=== PATIENT | male | born 1970 | race African-American/Black ===

== ENCOUNTER 2019-10-06 17:09 | Emergency (ER) | payer BC, OTHER ==
--- NOTE | 2019-10-06 17:35 | EDM.PDOC ---
ED HPI GENERAL MEDICAL PROBLEM - General Chief Complaint: Abdominal Pain Stated Complaint: ABD PAIN/BODY ACHES/HEADACHE Time Seen by Provider: 10/06/19 17:25 - History of Present Illness INITIAL COMMENTS - FREE TEXT/NARRATIVE: 49-year-old male presents the emergency room with abdominal pain and generalized aches and pains. Several days ago the patient developed some discomfort in his abdomen after eating pizza this was further aggravated by eating pepperoni from a pepperoni stick. Patient describes his pain is been in the periumbilical area. He has had some nausea no real vomiting. Patient also is having a lot of problems with constipation. The patient is voiding normally no burning or frequency. Patient has no prior history of any abdominal surgeries. He thought he had a fever when he came in but he does not. Abdomen Pain Score (Numeric/FACES): 3 - Related Data Allergies Allergy/AdvReac Type Severity Reaction Status Date / Time No Known Allergies Allergy Verified 10/06/19 17:20 Home Meds: Home Meds . [No Known Home Meds] 10/06/19 [History] Past Medical History - Past Health History Medical/Surgical History: Denies Medical/Surgical History Social & Family History - Caffeine Use Caffeine Use: Reports: Soda ED ROS GENERAL - Review of Systems Review Of Systems: See Below Constitutional: Reports: Other (He has felt warm) HEENT: Reports: No Symptoms Respiratory: Reports: No Symptoms Cardiovascular: Reports: No Symptoms GI/Abdominal: Reports: Abdominal Pain, Constipation, Nausea. Denies: Diarrhea, Vomiting : Reports: No Symptoms Musculoskeletal: Reports: Other (Had pain mostly in his legs around his knees.) Skin: Reports: No Symptoms Neurological: Reports: No Symptoms Psychiatric: Reports: No Symptoms Hematologic/Lymphatic: Reports: No Symptoms ED EXAM, GI/ABD - Physical Exam Exam: See Below Exam Limited By: No Limitations General Appearance: Alert, No Apparent Distress Head: Atraumatic, Normocephalic Neck: Normal Inspection, Supple, Non-Tender, Full Range of Motion Respiratory/Chest: No Respiratory Distress, Lungs Clear, Normal Breath Sounds Cardiovascular: Regular Rate, Rhythm, No Edema, No Murmur GI/Abdominal Exam: Normal Bowel Sounds, Soft, Tender (He has some vague nonlocalizing mid abdominal discomfort) Back Exam: Normal Inspection Extremities: Normal Inspection, No Pedal Edema Neurological: Alert, Oriented, Normal Cognition Course - Vital Signs Last Recorded V/S: Last Vital Signs Temp 36.3 C 10/06/19 17:25 Pulse 74 10/06/19 17:25 Resp 16 10/06/19 17:25 BP 130/79 10/06/19 17:25 Pulse Ox 99 10/06/19 17:25 - Orders/Labs/Meds Orders: Active Orders 24 hr Category Date Time Status Abdomen 2V AP Flat Upright [CR] Stat Exams 10/06/19 17:36 Taken Labs: Laboratory Tests 10/06/19 10/06/19 Range/Units 17:45 17:45 WBC 5.44 (4.23-9.07) K/mm3 RBC 5.27 (4.63-6.08) M/mm3 Hgb 14.3 (13.7-17.5) gm/dl Hct 44.2 (40.1-51.0) % MCV 83.9 (79.0-92.2) fl MCH 27.1 (25.7-32.2) pg MCHC 32.4 (32.2-35.5) g/dl RDW Std Deviation 40.3 (35.1-43.9) fL Plt Count 172 (163-337) K/mm3 MPV 11.8 (9.4-12.3) fl Neut % (Auto) 46.8 (34.0-67.9) % Lymph % (Auto) 33.3 (21.8-53.1) % Meeker % (Auto) 10.3 (5.3-12.2) % Eos % (Auto) 9.0 H (0.8-7.0) Baso % (Auto) 0.4 (0.1-1.2) % Neut # (Auto) 2.55 (1.78-5.38) K/mm3 Lymph # (Auto) 1.81 (1.32-3.57) K/mm3 [place] # (Auto) 0.56 (0.30-0.82) K/mm3 Eos # (Auto) 0.49 (0.04-0.54) K/mm3 Baso # (Auto) 0.02 (0.01-0.08) K/mm3 Sodium 136 (136-145) mEq/L Potassium 3.9 (3.5-5.1) mEq/L Chloride 103 (98-107) mEq/L Carbon Dioxide 28 (21-32) mEq/L Anion Gap 8.9 (5-15) BUN 11 (7-18) mg/dL Creatinine 1.2 (0.7-1.3) mg/dL Est Cr Clr Drug Dosing TNP Estimated GFR (MDRD) > 60 (>60) mL/min BUN/Creatinine Ratio 9.2 L (14-18) Glucose 110 H (74-106) mg/dL Calcium 8.8 (8.5-10.1) mg/dL Magnesium 1.7 L (1.8-2.4) mg/dl Total Bilirubin 0.6 (0.2-1.0) mg/dL AST 23 (15-37) U/L ALT 35 (16-63) U/L Alkaline Phosphatase 45 L (46-116) U/L Total Protein 7.2 (6.4-8.2) g/dl Albumin 3.6 (3.4-5.0) g/dl Globulin 3.6 gm/dL Albumin/Globulin Ratio 1.0 (1-2) Lipase 69 L (73-393) U/L - Re-Assessments/Exams Free Text/Narrative Re-Assessment/Exam: 10/06/19 18:30 Abdominal x-ray shows no evidence of obstruction however he has a very large stool accumulation throughout the colon. Labs are nondiagnostic his magnesium is a little low. I discussed all this with the patient and recommended he spanish [employer] some mag citrate drink a bottle now and repeat in 6 hours if he does not get the desired result. I recommended peak [employer] some Mag-Ox 400 mg take 2 pills a day for 10 days and then 1 pill daily thereafter. This might help with his leg cramps as well. Departure - Departure Time of Disposition: 18:31 Disposition: Home, Self-Care 01 Clinical Impression: Constipation - Discharge Information Referrals: PCP,None [Primary Care Provider] - Forms: ED Department Discharge Additional Instructions: Return to the emergency room with any questions problems or worsening symptoms. Follow-up in the hospital clinic in 1 week if needed [phone]. Go to the pharmacy and sp[employer] 2 bottles of magnesium citrate, you usually have to go to the pharmacist counter to get this, however you do not need a prescription. Drink 1 bottle when you get home chills at first or served over ice repeat again in 6 hours if you do not get the desired result. [employer] some MiraLAX and take as directed daily. [employer] some Mag-Ox 400 mg, magnesium oxide 400 mg, take 2 daily for 10 days and then 1 daily thereafter. Drink more fluids add more fruit and vegetables to your diet. Sepsis Event Note (ED) - Focused Exam Vital Signs: Vital Signs Temp Pulse Resp BP Pulse Ox 10/06/19 17:25 36.3 C 74 16 130/79 99 - My Orders Last 24 Hours: My Active Orders 10/06/19 17:36 Abdomen 2V AP Flat Upright [CR] Stat - Assessment/Plan Last 24 Hours: My Active Orders 10/06/19 17:36 Abdomen 2V AP Flat Upright [CR] Stat
[2019-10-06 17:39] VITALS: BP 130/79; PULSE 74
--- NOTE | 2019-10-07 11:27 | CR ---
Abdomen: Supine and upright views of the abdomen were obtained. Comparison: Prior abdominal x-ray of 10/29/11. Slight increased stool is noted throughout colon. Bowel gas pattern is otherwise unremarkable. No free air is seen. Bony structures are unremarkable. No abnormal calcifications or soft tissue abnormality is appreciated. Impression: 1. Slight increased stool within colon. 2. Nothing acute is otherwise seen on 2 view abdominal x-ray. Diagnostic code #2 Study was dictated in [facility]
== END 2019-10-06 18:42 | disposition home or self-care (01) ==
LOC: JD.ED 17:09
DX: K59.00 Constipation, unspecified (principal); R11.0 Nausea; M25.561 Pain in right knee; M25.562 Pain in left knee
CPT/HCPCS: 36415; 74019; 74019-26; 80053; 83690; 83735; 85025; 99282; 99284-25

== ENCOUNTER 2020-01-05 16:20 | Emergency (ER) | payer BC | END 2020-01-05 16:54 | LOC: JD.ED 16:20 | DX: Z53.21 Procedure and treatment not carried out due to patient leaving prior to being seen by health care provider (principal) ==

== ENCOUNTER 2022-07-16 06:59 | Emergency (ER) | payer BC ==
[2022-07-16] MEDS ORDERED: Acetaminophen 325 MG Tab PO ONE (07:47)
[2022-07-16] MEDS ORDERED: Ondansetron 4 MG Tab.DIS PO ONE (07:47)
[2022-07-16 08:40] LABS: BASOPHILS ABSOLUTE AUTO 0.01 K/mm3 (0.01-0.08); BASOPHILS PERCENT AUTO 0.2 % (0.1-1.2); EOSINOPHILS ABSOLUTE AUTO 0.12 K/mm3 (0.04-0.54); EOSINOPHILS PERCENT AUTO 2.6 (0.8-7.0); HEMATOCRIT 43.6 % (40.1-51.0); HEMOGLOBIN 14.4 gm/dl (13.7-17.5); IMMATURE GRAN ABSOLUTE AUTO 0.01 K/mm3 (0.00-0.10); IMMATURE GRAN PERCENT AUTO 0.2 % (<=1.0); LYMPHOCYTES ABSOLUTE AUTO 1.26 K/mm3 (1.32-3.57); MEAN CORPUSCULAR HEMOGLOBIN 27.1 pg (25.7-32.2); MEAN PLATELET VOLUME 11.6 fl (9.4-12.3); MONOCYTES ABSOLUTE AUTO 0.37 K/mm3 (0.30-0.82); MONOCYTES PERCENT AUTO 7.9 % (5.3-12.2); NEUTROPHILS ABSOLUTE AUTO 2.89 K/mm3 (1.78-5.38); NEUTROPHILS PERCENT AUTO 62.1 % (34.0-67.9); PLATELET COUNT,PLT 183 K/mm3 (163-337); RED BLOOD CELL COUNT 5.32 M/mm3 (4.63-6.08); WHITE BLOOD CELL COUNT,WBC 4.66 K/mm3 (4.23-9.07)
[2022-07-16 09:12] LABS: A/G RATIO 1.2 (1-2); ALBUMIN 4.1 g/dl (3.4-5.0); ANION GAP 13.2 (5-15); BILIRUBIN TOTAL 0.7 mg/dL (0.2-1.0); CALCIUM 9.3 mg/dL (8.5-10.1); EST CRCL DRUG DOSING (CG) 77.09 mL/min; POTASSIUM,K 4.2 mEq/L (3.5-5.1); PROTEIN TOTAL,TP 7.5 g/dl (6.4-8.2)
[2022-07-16 09:22] LABS: APPEARANCE,URINE CLEAR (Clear); BILIRUBIN,URINE NEGATIVE (Negative); COLOR,URINE YELLOW (Yellow); GLUCOSE,URINE NEGATIVE (Negative); KETONES,URINE NEGATIVE (Negative); LEUKOCYTE ESTERASE,URINE NEGATIVE (Negative); NITRITE,URINE NEGATIVE (Negative); OCCULT BLOOD,URINE NEGATIVE (Negative); PROTEIN,URINE NEGATIVE (Negative); UROBILINOGEN,URINE 0.2 (0.2-1.0)
[2022-07-16 09:31] LABS: BACTERIA,URINE FEW /hpf (FEW); EPITHELIAL CELLS,URINE 0-5 /hpf (0-5); MUCUS,URINE FEW /hpf (FEW); RBC,URINE 0-5 /hpf (0-5); WBC,URINE 0-5 /hpf (0-5)
[2022-07-16 10:33] VITALS: BP 118/79; PULSE 68
== END 2022-07-16 09:35 | disposition home or self-care (01) ==
LOC: JD.ED 06:59
DX: R10.84 Generalized abdominal pain (principal); M79.604 Pain in right leg; R11.2 Nausea with vomiting, unspecified
CPT/HCPCS: 36415; 74018; 80053; 81001; 83690; 85025; 99284; A9270

== ENCOUNTER 2022-11-05 08:52 | Emergency (ER) | payer BC ==
[2022-11-05] MEDS ORDERED: Doxycycline Monohydrate 100 MG Cap PO ONE (09:55)
[2022-11-05 10:43] VITALS: BP 111/71; PULSE 74
== END 2022-11-05 10:39 | disposition home or self-care (01) ==
LOC: JD.ED 08:52
DX: L08.9 Local infection of the skin and subcutaneous tissue, unspecified (principal)
CPT/HCPCS: 99282; 99283

== ENCOUNTER 2024-06-25 08:16 | Emergency (ER) | payer BC ==
[2024-06-25] MEDS: Ketorolac 60 MG/2 ML SDV IM ONE (08:52)
[2024-06-25] MEDS: Lidocaine 4% Patch TOP STA (08:53)
[2024-06-25 09:11] VITALS: BP 108/79; PULSE 66
== END 2024-06-25 09:05 | disposition home or self-care (01) ==
LOC: JD.ED 08:16
DX: S76.012A Strain of muscle, fascia and tendon of left hip, initial encounter (principal); X50.1XXA Overexertion from prolonged static or awkward postures, initial encounter
CPT/HCPCS: 96372; 99283; A9270; J1885